=== PATIENT | male | born 1960 | race Caucasian/White ===

== ENCOUNTER 2019-08-13 16:06 | Emergency (ER) | payer OTHER ==
[~2019-08-13] VITALS: Ht 180.3 cm; Wt 88.0 kg
[2019-08-13] MEDS ORDERED: KETOROLAC 30MG/ML VIAL IV STA (18:00)
[2019-08-13] MEDS ORDERED: MORPHINE SULFATE 4 MG/ML CPJ (NOT FOR IM USE) IV STA (18:00)
[2019-08-13] MEDS ORDERED: SODIUM CHLORIDE 0.9% 1,000 ML IV ONE (18:00)
[2019-08-13] MEDS ORDERED: ONDANSETRON HCL 4MG/2ML INJ IV STA (18:00)
[2019-08-13 18:54] LABS: CHLORIDE 103 mEq/L (98-107)
[2019-08-13 18:55] LABS: INR 1.1; PROTHROMBIN TIME 11.3 sec (9.6-11.0)
[2019-08-13 18:57] LABS: BASOPHILS % 0.7 % (0.0-2.0); EOSINOPHILS % 1.7 % (0.0-5.0); HEMOGLOBIN. 16.8 g/dL (14.0-18.0); LYMPHOCYTES % 16.6 % (20.0-50.0); MEAN CORPUSCULAR VOLUME 87.4 fL (80.0-94.0); MEAN PLATELET VOLUME 8.7 fl (7.4-10.4); MONOCYTES % 8.1 % (2.0-8.0); NEUTROPHILS % 72.9 % (40.0-76.0); PLATELET 283 x1000/uL (130-400); RED CELL DISTRIBUTION WIDTH 13.3 % (11.6-14.6)
[2019-08-13] MEDS ORDERED: CEFTRIAXONE 1 G PREMIX 50 ML IV ONE (19:45)
[2019-08-13 21:15] VITALS: BP 151/87
== END 2019-08-13 21:35 | disposition home or self-care (01) ==
LOC: ER 16:06
DX: R10.9 Unspecified abdominal pain (principal); R33.9 Retention of urine, unspecified; N30.90 Cystitis, unspecified without hematuria; E11.9 Type 2 diabetes mellitus without complications
CPT/HCPCS: 36415; 51702; 80053; 83690; 85025; 85610; 96365; 96375; 99283; J0696; J1885; J2270; J2405; J7030; J7040; Z7610

== ENCOUNTER 2022-10-23 17:21 | Emergency (ER) | payer MEDICAID ==
[~2022-10-23] VITALS: Ht 185.4 cm; Wt 86.4 kg
[2022-10-23 17:33] VITALS: BP 154/98
[2022-10-23] MEDS ORDERED: CYCL5TAB MT (21:01)
[2022-10-23] MEDS ORDERED: IBUP-2029 MT (21:01)
== END 2022-10-23 21:30 | disposition home or self-care (01) ==
LOC: ER 17:21
DX: R07.81 Pleurodynia (principal); E11.9 Type 2 diabetes mellitus without complications
CPT/HCPCS: 71100; 99283

== ENCOUNTER 2023-06-20 21:58 | Inpatient (IN) | payer MEDICAID, OTHER ==
[~2023-06-20] VITALS: Ht 175.3 cm; Wt 81.6 kg
[~2023-06-20 21:58] MED LIST: CYCL5TAB MT; IBUP-2029 MT
[2023-06-20] MEDS ORDERED: SODIUM CHLORIDE 0.9% 1,000 ML IV ONE (22:45)
[2023-06-20] MEDS ORDERED: VANCOMYCIN 1G PREMIX 200 ML IV SCH (22:45)
[2023-06-20 23:00] LABS: EOSINOPHILS % 1.4 % (0.0-5.0); HEMATOCRIT. 27.6 % (42.0-52.0); HEMOGLOBIN. 9.5 g/dL (14.0-18.0); LYMPHOCYTES % 13.5 % (20.0-50.0); MEAN CORPUSCULAR HEMOGLOBIN 29.1 pg (28.0-32.0); MEAN CORPUSCULAR HGB CONC 34.3 g/dL (31.0-37.0); MEAN CORPUSCULAR VOLUME 84.8 fL (80.0-94.0); MONOCYTES % 9.3 % (2.0-8.0); NEUTROPHILS % 74.8 % (40.0-76.0); PLATELET 582 x1000/uL (130-400); RED BLOOD CELL COUNT 3.25 mill/uL (4.7-6.1); RED CELL DISTRIBUTION WIDTH 13.9 % (11.6-14.6); WHITE BLOOD COUNT 11.4 x1000/uL (4.5-11.0)
[2023-06-20 23:17] LABS: ALANINE AMINOTRANSFERASE 28 IU/L (10-49); ALBUMIN 2.9 g/dL (3.2-4.8); ASPARTATE AMINOTRANSFERASE 26 IU/L (<34); BILIRUBIN TOTAL 0.3 mg/dL (0.1-1.0); CALCIUM 7.8 mg/dL (8.7-10.4); CARBON DIOXIDE 25 mEq/L (21-32); CHLORIDE 99 mEq/L (98-107); CREATININE 0.6 mg/dL (0.6-1.3); GLUCOSE 188 mg/dL (70-105); POTASSIUM 3.8 mEq/L (3.5-5.1); PROTEIN TOTAL 6.2 g/dL (6.0-8.3); SODIUM 131 mEq/L (136-145); UREA NITROGEN BLOOD 11 mg/dL (9-23)
[2023-06-21 04:00] VITALS: BP 142/79; PULSE 95; RESP 19; TEMP 98
[2023-06-21 04:25] VITALS: BP 142/79; PULSE 95; RESP 19; TEMP 98
[2023-06-21 04:49] VITALS: BP 142/79; PULSE 95; RESP 19; TEMP 98
[2023-06-21] MEDS ORDERED: ZOLPIDEM TARTRATE 5MG TABLET PO PRN (05:45)
[2023-06-21] MEDS ORDERED: DEXTROSE 50% WATER 50ML SYRINGE IV PRN (05:45)
[2023-06-21] MEDS: HYDROCODONE/ACETAMINOPHEN 5/325MG TABLET PO PRN ×4 (05:56→20:55)
[2023-06-21] MEDS: BLOOD SUGAR DIAGNOSTIC STRIP TEST SCH ×4 (06:38→20:13)
[2023-06-21] MEDS: INSULIN LISPRO 100 UNITS/ML SUBCUT SCH ×4 (07:50→20:55)
[2023-06-21 08:00] VITALS: BP 108/53; PULSE 84; RESP 19; TEMP 98.7
[2023-06-21 10:44] LABS: BASOPHILS % 0.6 % (0.0-2.0); EOSINOPHILS % 1.1 % (0.0-5.0); HEMATOCRIT. 27.8 % (42.0-52.0); HEMOGLOBIN. 9.6 g/dL (14.0-18.0); LYMPHOCYTES % 17.6 % (20.0-50.0); MEAN CORPUSCULAR HEMOGLOBIN 29.3 pg (28.0-32.0); MEAN CORPUSCULAR HGB CONC 34.7 g/dL (31.0-37.0); MEAN CORPUSCULAR VOLUME 84.4 fL (80.0-94.0); MEAN PLATELET VOLUME 7.2 fl (7.4-10.4); MONOCYTES % 10.8 % (2.0-8.0); NEUTROPHILS % 69.9 % (40.0-76.0); PLATELET 550 x1000/uL (130-400); RED BLOOD CELL COUNT 3.29 mill/uL (4.7-6.1); RED CELL DISTRIBUTION WIDTH 14.2 % (11.6-14.6); WHITE BLOOD COUNT 9.8 x1000/uL (4.5-11.0)
[2023-06-21] MEDS ORDERED: VANCOMYCIN 750MG PREMIX 150 ML IV SCH (11:00)
[2023-06-21 12:00] VITALS: BP 108/47; PULSE 86; RESP 20; TEMP 99.1
[2023-06-21 12:14] LABS: CALCIUM 7.6 mg/dL (8.7-10.4); CARBON DIOXIDE 27 mEq/L (21-32); CHLORIDE 101 mEq/L (98-107); CREATININE 0.5 mg/dL (0.6-1.3); GLUCOSE 114 mg/dL (70-105); POTASSIUM 3.7 mEq/L (3.5-5.1); SODIUM 136 mEq/L (136-145); UREA NITROGEN BLOOD 11 mg/dL (9-23)
[2023-06-21] MEDS: VANCOMYCIN 1G PREMIX 200 ML IV SCH (15:00)
[2023-06-21 20:00] VITALS: BP 133/60; PULSE 80; RESP 20; TEMP 98.6
[2023-06-22] MEDS: VANCOMYCIN 1G PREMIX 200 ML IV SCH (06:00)
[2023-06-22 08:00] VITALS: BP 150/80; PULSE 67; RESP 20; TEMP 98.4
[2023-06-22] MEDS ORDERED: LINE600T14 MT (11:01)
[2023-06-22 12:00] VITALS: BP 132/67; PULSE 77; RESP 20; TEMP 97.2
[2023-06-22 12:21] VITALS: BP 132/67; PULSE 77; TEMP 97.2; O2SAT 96
== END 2023-06-22 13:00 | disposition home health service (06) | DRG 720 ==
LOC: ER 21:58 → 6EST 06-21 01:17 → EDBEDREQ 06-21 01:19 → 6EST 06-21 10:09
PROVIDERS: ADMIT Internal Medicine; ATTEND Internal Medicine
DX: A41.9 Sepsis, unspecified organism (principal); U07.1 COVID-19; A48.0 Gas gangrene; E11.52 Type 2 diabetes mellitus with diabetic peripheral angiopathy with gangrene; I50.30 Unspecified diastolic (congestive) heart failure; B95.62 Methicillin resistant Staphylococcus aureus infection as the cause of diseases classified elsewhere; E11.51 Type 2 diabetes mellitus with diabetic peripheral angiopathy without gangrene; E87.1 Hypo-osmolality and hyponatremia; E11.65 Type 2 diabetes mellitus with hyperglycemia; F19.10 Other psychoactive substance abuse, uncomplicated; R26.9 Unspecified abnormalities of gait and mobility; N40.0 Benign prostatic hyperplasia without lower urinary tract symptoms; N39.0 Urinary tract infection, site not specified; F17.210 Nicotine dependence, cigarettes, uncomplicated; Z53.29 Procedure and treatment not carried out because of patient's decision for other reasons; Z89.432 Acquired absence of left foot; Z86.14 Personal history of Methicillin resistant Staphylococcus aureus infection
CPT/HCPCS: 36415; 80048; 80053; 82962; 83036; 84145; 85025; 87426; 99285; J1815; J3370; J7030